=== PATIENT | male | born 1975 | race Caucasian/White ===

== ENCOUNTER 2021-07-07 14:14 | Emergency (ER) | payer OTHER ==
[~2021-07-07] VITALS: Ht 182.9 cm; Wt 136.0 kg
[~2021-07-07 14:14] MED LIST: CEPHALEXIN500 MG OR; NO
[2021-07-07 17:15] VITALS: BP 137/87
== END 2021-07-07 17:15 | disposition home or self-care (01) | DRG 605 ==
LOC: ED 14:14
DX: S60.222A Contusion of left hand, initial encounter (principal); I10 Essential (primary) hypertension; E78.5 Hyperlipidemia, unspecified; W20.8XXA Other cause of strike by thrown, projected or falling object, initial encounter; Y93.K9 Activity, other involving animal care; Y92.79 Other farm location as the place of occurrence of the external cause

== ENCOUNTER 2022-10-07 10:44 | Emergency (ER) | payer SELFPAY ==
[~2022-10-07] VITALS: Ht 182.9 cm; Wt 127.0 kg
[2022-10-07 11:03] VITALS: BP 174/107
[2022-10-07] MEDS ORDERED: ASPIRINCHW 81MG PO (11:07)
[2022-10-07 11:15] VITALS: BP 154/98
[2022-10-07 11:51] VITALS: BP 150/101
[2022-10-07 11:57] LABS: BASO% 0.1 % (0-3); EOS% 0.6 % (0-8); HEMATOCRIT 44.1 % (39.0-50.0); HEMOGLOBIN 14.3 g/dl (14.0-18.0); IMMATURE GRANULOCYTES 0.1 % (0.0-5.0); LYMPH% 12.8 % (15-41); MEAN CELL VOLUME 85.3 fL CALC (80.0-100.0); MEAN CORPUSCULAR HGB 27.7 pG CALC (26.0-32.0); MEAN CORPUSCULAR HGB CONC 32.4 g/dL CAL (32.0-36.0); MONO% 5.3 % (2-13); NEUT# 6.67 thou/uL (1.82-7.42); NEUT% 81.1 % (42-76); RED BLOOD COUNT 5.17 mill/uL (4.70-6.10); RED CELL DISTRI WIDTH 12.5 % (11.5-15.5)
[2022-10-07 12:00] VITALS: BP 144/95
[2022-10-07 12:24] LABS: ALBUMIN 4.5 g/dL (3.2-5.0); ALKALINE PHOSPHATASE 99 u/l (38-126); ANION GAP 14 (6-22 (CALC)); BILIRUBIN, TOTAL 0.5 mg/dL (0.2-1.3); BUN 16 mg/dL (9-20); BUN/CREATININE RATIO 16 (12-20 (CALC)); CHLORIDE 107 mmol/l (95-108); GFR FOR AFR.AMER. > 60 ML/MIN (>=60 (CALC)); GFR OTHER RACES > 60 ML/MIN (>=60 (CALC)); POTASSIUM 4.1 mmol/l (3.5-5.1); SGOT/AST 34 u/l (17-59); SODIUM 141 mmol/l (137-146); TOTAL PROTEIN 7.5 g/dL (6.3-8.2)
[2022-10-07 12:35] LABS: CARBON DIOXIDE 24 mmol/l (22-30)
[2022-10-07] MEDS ORDERED: IBUPROFEN600 MG PO (16:10)
[2022-10-07 16:37] VITALS: BP 121/78
== END 2022-10-07 16:43 | disposition home or self-care (01) | DRG 156 ==
LOC: ED 10:44
PROVIDERS: Family Medicine
DX: S02.2XXA Fracture of nasal bones, initial encounter for closed fracture (principal); S06.0X0A Concussion without loss of consciousness, initial encounter; S00.83XA Contusion of other part of head, initial encounter; I10 Essential (primary) hypertension; E78.5 Hyperlipidemia, unspecified; W55.22XA Struck by cow, initial encounter; Y92.69 Other specified industrial and construction area as the place of occurrence of the external cause; Y99.0 Civilian activity done for income or pay
CPT/HCPCS: Q9967